=== PATIENT | female | born 1955 | race Two or more races ===

== ENCOUNTER 2021-05-28 13:11 | Emergency (ER) | payer OTHER ==
[~2021-05-28] VITALS: Ht 165.1 cm; Wt 69.4 kg
[2021-05-28] MEDS ORDERED: LIPITOR40 M1 PO (13:17)
== END 2021-05-28 17:38 | disposition left against medical advice (07) ==
LOC: ER 13:11
DX: Z53.21 Procedure and treatment not carried out due to patient leaving prior to being seen by health care provider (principal)

== ENCOUNTER 2022-06-02 06:20 | Day surgery (SDC) | payer OTHER ==
[~2022-06-02 06:20] MED LIST: LIPITOR40 M1 PO
== END 2022-06-02 10:00 | disposition home or self-care (01) ==
LOC: AMB-ENDOS 06:20
PROVIDERS: ATTEND Surgery
DX: K63.5 Polyp of colon (principal); Z20.822 Contact with and (suspected) exposure to COVID-19

== ENCOUNTER 2022-07-11 08:00 | Day surgery (SDC) | payer OTHER | END 2022-07-11 14:20 | disposition home or self-care (01) | LOC: AMB-ENDOS 08:00 | PROVIDERS: ATTEND Surgery | DX: D12.4 Benign neoplasm of descending colon (principal); K92.1 Melena; K64.4 Residual hemorrhoidal skin tags; Z20.822 Contact with and (suspected) exposure to COVID-19 ==